=== PATIENT | female | born 1995 | race Asian ===

== ENCOUNTER 2019-02-17 14:03 | Emergency (ER) | payer BC ==
[~2019-02-17] VITALS: Ht 162.6 cm; Wt 53.5 kg
[2019-02-17 18:25] VITALS: BP 127/94
== END 2019-02-17 18:43 | disposition home or self-care (01) ==
LOC: ED 14:03
DX: S91.201A Unspecified open wound of right great toe with damage to nail, initial encounter (principal); W22.8XXA Striking against or struck by other objects, initial encounter; Y93.89 Activity, other specified; Y92.89 Other specified places as the place of occurrence of the external cause; Y99.8 Other external cause status
CPT/HCPCS: 90715; J2001; Q0092

== ENCOUNTER 2019-03-05 11:56 | Emergency (ER) | payer BC ==
[~2019-03-05] VITALS: Ht 162.6 cm; Wt 66.7 kg
[2019-03-05 12:08] VITALS: Ht 162.6 cm; Wt 66.7 kg
[2019-03-05 13:05] VITALS: BP 110/59
== END 2019-03-05 13:05 | disposition home or self-care (01) ==
LOC: ED 11:56
DX: Z48.01 Encounter for change or removal of surgical wound dressing (principal)